=== PATIENT | female | born 1970 | race Hispanic/Latino ===

== ENCOUNTER 2018-03-07 09:34 | Day surgery (SDC) | payer OTHER ==
[~2018-03-07] VITALS: Ht 160 cm; Wt 107.8 kg
[~2018-03-07 09:34] MED LIST: ALPR0.5T8 PO; HYDR-4377 PO; OMEP40CA37 PO; SODIUM CHLORIDE 0.9% 1000ML 1,000 ML IV ONE; ZOLP10TA6 PO
[2018-03-07 09:45] VITALS: BP 133/66
[2018-03-07] MEDS ORDERED: LIDOCAINE HCL 2% 20ML ONE (12:20)
[2018-03-07] MEDS ORDERED: PROPOFOL 10 MG/ML 20ML VIAL IV ONE (12:20)
[2018-03-07 12:37] VITALS: BP 109/57
== END 2018-03-07 13:12 | disposition home or self-care (01) ==
LOC: ENDO 09:34 → DAH 09:34 → ENDO 13:12
PROVIDERS: ATTEND Internal Medicine Gastroenterology
DX: Z09 Encounter for follow-up examination after completed treatment for conditions other than malignant neoplasm (principal); K60.2 Anal fissure, unspecified; K21.9 Gastro-esophageal reflux disease without esophagitis; K58.8 Other irritable bowel syndrome; F32.9 Major depressive disorder, single episode, unspecified; G47.33 Obstructive sleep apnea (adult) (pediatric); G43.909 Migraine, unspecified, not intractable, without status migrainosus; Z79.899 Other long term (current) drug therapy
CPT/HCPCS: 45378; A4606; J2704; J3490; J7030

== ENCOUNTER → 2019-05-06 | Outpatient (CLI) | payer OTHER ==
[~2019-05-06] MED LIST changes: -SODIUM CHLORIDE 0.9% 1000ML 1,000 ML IV ONE
== END | disposition home or self-care (01) ==
LOC: OIH 10:50
PROVIDERS: ATTEND Internal Medicine
DX: M22.3X2 Other derangements of patella, left knee (principal); M25.562 Pain in left knee
CPT/HCPCS: 73560

== ENCOUNTER 2025-04-04 09:45 | Emergency (ER) | payer OTHER ==
[~2025-04-04] VITALS: Ht 160 cm; Wt 93.0 kg
[~2025-04-04 09:45] MED LIST changes: +OMEP40CA21 PO; -OMEP40CA37 PO
[2025-04-04 10:14] LABS: RAPID GROUP A STREP negative (NEGATIVE)
[2025-04-04 10:23] LABS: INFLUENZA TYPE A Negative For Type A (NEGATIVE); INFLUENZA TYPE B Negative For Type B (NEGATIVE)
[2025-04-04] MEDS: dexaMETHasone SOD PHOSPHATE 4 MG/ML 1ML VIAL IM ONE (10:23)
[2025-04-04] MEDS: acetaMINOPHEN/coDEINE 120/12MG 5ML PO ONE (10:23)
[2025-04-04 10:28] LABS: SARS-CoV-2, RNA, NAAT NEGATIVE SARS CoV-2 (NEGATIVE)
[2025-04-04] MEDS ORDERED: FLUT16H NS (12:31)
[2025-04-04] MEDS ORDERED: AMOX1TAB16 PO (12:31)
[2025-04-04] MEDS ORDERED: LORA10TA7 PO (12:31)
--- NOTE | 2025-04-04 12:31 | ERN ---
General Chief Complaint: Congestion Stated Complaint: COUGH Time Seen by MD: 09:46 Source: patient History of Present Illness Initial Comments PATIENT IS A 54-YEAR-OLD FEMALE COMING IN TO BE EVALUATED FOR URI SYMPTOMS. PATIENT STATES IT WAS A SYMPTOMS BEGAN THREE DAYS AGO AND HAS BEEN PROGRESSIVELY GETTING WORSE. ALONG WITH THE STATES THAT SHE FEELS CHILLS NO FEVER. Allergies: Coded Allergies: No Known Allergies (Unverified Allergy, 11/16/13) Home Meds Reported Medications Omeprazole (Omeprazole) 40 Mg Capsule.dr, 40 MG PO DAILY, CAP 03/06/18 Hydrocodone/Acetaminophen (Hydrocodone-Acetamin 5-300 mg) 1 Each Tablet, 1 EACH PO DAILY, TAB 03/06/18 Zolpidem Tartrate (Zolpidem Tartrate) 10 Mg Tablet, 10 MG PO DAILY, TAB 03/06/18 Alprazolam (Alprazolam) 0.5 Mg Tablet, 0.5 MG PO TID, TAB 03/06/18 Past Medical History Past Medical History: No Pertinent History Past Surgical History: Hysterectomy, Surgical History Other: LEFT FOOT SURGERY ROS Dictation CONSTITUTIONAL: CHILLS, NO FEVER, NO WEAKNESS, NO DIAPHORESIS, NO MALAISE. HEAD/FACE: NO SIGNS OF TRAUMA. EENT: NO EYE PAIN, NO BLURRED VISION, NO TEARING, NO DOUBLE VISION, NO EAR PAIN, NO EAR DISCHARGE, NO NOSE PAIN, NO NASAL CONGESTION, NO THROAT PAIN, NO THROAT SWELLING, NO MOUTH PAIN. RESPIRATORY: COUGH, NO ORTHOPNEA, NO SOB, NO STRIDOR, NO WHEEZING. CARDIOVASCULAR: NO CHEST PAIN, NO EDEMA, NO PALPITATIONS, NO SYNCOPE. GASTROINTESTINAL/ABDOMINAL: NO ABDOMINAL PAIN, NO CONSTIPATION, NO DIARRHEA, NO NAUSEA, NO VOMITING. GENITOURINARY: NO ABNORMAL DISCHARGE, NO DYSURIA, NO FREQUENT URINATION, NO HEMATURIA. NO COMPLAINTS OF PAIN IN THE GENITALS. MUSCULOSKELETAL: NO BACK PAIN, NO GOUT, NO JOINT PAIN, NO JOINT SWELLING, NO MUSCLE PAIN, NO MUSCLE STIFFNESS, NO NECK PAIN. INTEGUMENTARY: NO CHANGE IN COLOR, NO CHANGE IN HAIR/NAILS, NO DRYNESS, NO LESION, NO LUMPS, NO RASH. NEUROLOGICAL/PSYCH: NO ANXIETY, NOT DEPRESSED, NO EMOTIONAL PROBLEM, NO HEADACHE, NO NUMBNESS, NO PRE-EXISTING DEFICIT, NO HISTORY OF SEIZURES, NO TREMORS, NO WEAKNESS. HEMATOLOGIC/LYMPHATIC: NOT ANEMIC, NO HISTORY OF BLOOD CLOTS, NO APPARENT BLEEDING, NO BRUISING, GLANDS NOT SWOLLEN. ALL SYSTEMS NEGATIVE, EXCEPT NOTED. Physical Exam Physical Exam Dictation VITAL SIGNS: REVIEWED. GENERAL APPEARANCE: ALERT, ORIENTED X3, NO ACUTE DISTRESS, OBESE. HEAD AND FACE: NON-TRAUMATIC. FRONTAL SINUS TENDERNESS ON PALPATION EYES: PERRL, PINK CONJUNCTIVAS, EYELID NO TRAUMA, ANTERIOR CHAMBER CLEAR. EARS: PINNAS INTACT AND NO SIGNS OF TRAUMA OR ERYTHEMA. EAR CANALS CLEAR AND NO DISCHARGE. TMS ERYTHEMA. NOSE: NO DISCHARGE, NO BLEEDING. OROPHARYNX: MOUTH NORMAL, TEETH NO CARIES, TONGUE PINK. PHARYNX ERYTHEMA. T ONSILS NO EXUDATES, NO ABSCESSES NOTED. MUCOUS MEMBRANE MOIST. NECK: SUPPLE, NON-TENDER, NO THYROMEGALY, NO MASSES, NO JVD, NO BRUITS. BREAST: DEFERRED. CHEST: NO TENDERNESS, NO CREPITUS, NO PARADOXICAL MOVEMENT, NO RETRACTIONS. LUNGS: CLEAR, WELL-VENTILATED, SYMMETRIC, NO RALES, NO WHEEZING, NO RHONCHI, NO STRIDOR, GOOD BREATH SOUNDS BILATERALLY. HEART: REGULAR RATE, REGULAR RHYTHM, NO MURMUR, NO GALLOPS. VASCULAR: NO PERIPHERAL EDEMA. ABDOMEN: SOFT, POSITIVE BOWEL SOUNDS, NONDISTENDED, NO GUARDING, NONTENDER, NO REBOUND, NO MASSES NO HEPATOMEGALY, NO SPLENOMEGALY, NO NORMAN'S SIGN, NO HERNIAS. RECTAL: DEFERRED. GENITAL: DEFERRED. NEUROLOGICAL: NORMAL SPEECH, GROSS MOTOR FUNCTION INTACT, GROSS SENSORY FUNCTION INTACT. MUSCULOSKELETAL: NECK NONTENDER, FULL RANGE OF MOTION, BACK NONTENDER, FULL RANGE OF MOTION. EXTREMITIES: NONTENDER, FULL RANGE OF MOTION. SKIN: COLOR PINK, DRY, NO TURGOR, NO RASH, NO LACERATIONS, NO ABRASIONS, NO CONTUSIONS. LYMPHATICS: DEFERRED. Results Laboratory and Microbiology Lab and Micro Result Laboratory Tests Test 04/04/25 09:58 Influenza Type A Antigen Negative For Type A Influenza Type B Antigen Negative For Type B SARS-CoV-2, RNA, NAAT NEGATIVE SARS CoV-2 Group A Streptococcus Rapid negative (NEGATIVE) Labs Reviewed?: Yes MDM MDM: DIFFERENTIAL DIAGNOSIS: SINUSITIS, URI, FLU, COVID RATIONALE: TESTS CONSIDERED AND ORDERED SECONDARY TO SHARED DECISION MAKING INC LUDE: PREVIOUS OUTSIDE RECORDS REVIEWED: OLD ER VISITS. RISK OF COMPLICATION AND/OR MORBIDITY OR MORTALITY OF PATIENT MANAGEMENT: NONE MEDICATIONS-PER MEDICATION RECONCILIATION PATIENT IS A 54-YEAR-OLD FEMALE COMING IN TO BE EVALUATED FOR URI SYMPTOMS. [place] BORATORY WORKUP NEGATIVE FOR ACUTE FINDINGS. ON PHYSICAL EXAM BILATERAL TYMPANIC MEMBRANE ERYTHEMA OROPHARYNGEAL ERYTHEMA WITH POSTNASAL DRIP. PATIENT WILL BE DISCHARGED WITH A DIAGNOSIS OF SINUSITIS. ED Course Orders Procedure Category Date Status Time Covid Rna Naat LAB 04/04/25 Complete 09:49 Influenza Type A & B, LAB 04/04/25 Complete Rapid 09:49 Rapid (Group A Strep) LAB 04/04/25 Complete 09:49 Dexamethasone 4mg/Ml PHA 04/04/25 Complete 1ml Vial (Dexametha 10:00 Acetaminophen-Codeine PHA 04/04/25 Complete Elixer (Tylenol-Co 10:30 12 Lead Ekg Tracing- EKG 04/04/25 Logged Technical 09:50 Current Medications Medications (Trade) Dose Ordered Sig/Roberta Route PRN Reason Start Time Stop Time Status Last Admin Dose Admin Acetaminophen/ Codeine Phosphate (TYLenol-coDEINE (120/12MG 5ML) ELIXIR) 10 ml ONCE ONCE PO 04/04/25 10:30 04/04/25 10:31 DC 04/04/25 10:23 Dexamethasone Sodium Phosphate (dexaMETHasone 4MG/ML 1ML VIAL) 4 mg ONCE ONCE IM 04/04/25 10:00 04/04/25 10:01 DC 04/04/25 10:23 Vital Signs Date Time Temp Pulse Resp B/P (MAP) Pulse Ox O2 Delivery O2 Flow Rate FiO2 04/04/25 09:46 100.0 107 18 134/67 97 Room Air DX & DISP Disposition: Discharge Departure Impression: Primary Impression: Frontal sinusitis Condition: Stable Scripts Loratadine (Loratadine) 10 Mg Tablet 1 TAB PO DAILY for allergy symptoms for 30 Days, #30 TAB 0 Refills Prov: SONDRA BARRY MD 04/04/25 Fluticasone Propionate (Flonase Nasal [place]) 50 Mcg/Actuation [place] 2 SPRAY NS DAILY, #16 GM 0 Refills Prov: SONDRA BARRY MD 04/04/25 Amoxicillin/Potassium Clav (Amox Tr-K Clv 875-125 mg Tab) 875 Mg-125 Mg Tablet 1 TAB PO BID for 10 Days, #20 TAB 0 Refills Prov: SONDRA BARRY MD 04/04/25 Additional Instructions: FOLLOW-UP WITH PRIMARY CARE PROVIDER IN 1 TO 2 DAYS. TAKE MEDICATIONS DIRECTED HERE IN THE EMERGENCY ROOM. OKAY TO CONTINUE HOME MEDICATIONS UNLESS OTHERWISE DISCUSSED DURING YOUR VISIT IN THE EMERGENCY ROOM TODAY. RETURN TO YOUR NEAREST EMERGENCY ROOM IF SYMPTOMS WORSEN OR IF THERE IS NO IMPROVEMENT. CALL 911 IF YOU NEED IMMEDIATE ASSISTANCE. TAKE TYLENOL [id number] NEEDED AND IF NO CONTRAINDICATIONS ARE PRESENT. INCREASE ORAL HYDRATION. A WOUND CULTURE OR URINE CULTURE WAS ORDERED HERE IN THE EMERGENCY ROOM DEPARTMENT PLEASE FOLLOW-UP WITH PRIMARY CARE PROVIDER AND ADVISE THEM TO GET REPEAT PORTS FROM OUR FACILITY. IF YOU HAD ANY ISAIAH WRAP/SPLINTS THAT WERE APPLIED HERE, PLEASE DO NOT REMOVE THEM UNTIL YOU SEE YOUR PRIMARY CARE OR SPECIALTY. REFERRALS: Referrals: MERE MATHIAS MD (PCP) Time of Disposition: 12:30 SONDRA BARRY MD April 04, 2025 12:31
[2025-04-04 12:34] VITALS: BP 131/69; PULSE 95; RESP 18; TEMP 99; O2SAT 98
--- NOTE | 2025-04-05 08:03 | EKG ---
[facility] Test Date: 2025-04-04 Test Time: 09:57:25 Pat Name: RONAN MORALES Department: ED Room: Gender: F Hand Sewer: 07 : 1970 Requested By: SONDRA BARRY Order Number: [id number] Reading MD: Tucker Nuno Measurements Intervals [place] Rate: 114 P: 30 FL: 136 QRS: 61 QRSD: 79 T: 29 QT: 311 QTc: 428 Interpretive Statements Sinus tachycardia Probable left atrial enlargement Compared to ECG 07/31/2017 19:56:10 Sinus rhythm no longer present Electronically Signed On 04-05-2025 12:48:36 CDT by Tucker Nuno Please click the below link to view image of tracing.
== END 2025-04-04 12:43 | disposition home or self-care (01) ==
LOC: EDH 09:45
DX: J32.1 Chronic frontal sinusitis (principal); Z79.899 Other long term (current) drug therapy; Z90.710 Acquired absence of both cervix and uterus; Z20.822 Contact with and (suspected) exposure to COVID-19
CPT/HCPCS: 99284; 87635; 87880; 87804 ×2; 96372; 93005; J1100